=== PATIENT | male | born 1955 | race Caucasian/White ===

== ENCOUNTER 2019-11-14 07:13 | Inpatient (IN) ==
[2019-11-14] MEDS ORDERED: DEXTROSE 50% 25 GM/50 ML VIAL IV PRN (08:30)
[2019-11-14] MEDS ORDERED: DEXTROSE 10% 250 ML BAG IV PRN (08:30)
[2019-11-14] MEDS ORDERED: SODIUM CHLORIDE 0.9% 1,000 ML IV SCH (08:30)
[2019-11-14] MEDS ORDERED: GLUCAGON 1 MG VIAL IM PRN ×2 (08:30)
[2019-11-14] MEDS: amLODIPine 10 MG TABLET PO SCH (12:28)
[2019-11-14] MEDS: ATORVASTATIN 10 MG TABLET PO SCH (12:29)
[2019-11-14] MEDS: atenoloL 50 MG TABLET PO SCH ×2 (12:29→20:23)
[2019-11-14] MEDS: lisinopriL 20 MG TABLET PO SCH (12:29)
[2019-11-14] MEDS: hydroCHLOROthiazide 12.5 MG CAPSULE PO SCH (12:29)
[2019-11-14 12:57] LABS: Basophils % 0.4 % (0.0-0.8); Eosinophils # 0.2 10*3/uL (0.0-0.87); Eosinophils % 1.9 % (0.00-10.9); Hemoglobin 13.8 GM/DL (14.0-18.0); Immature Granulocytes % 0.3 %; Immature Granulocytes Absolute 0.03 #; Lymphocytes # 2.7 10*3/uL (1.4-4.0); Lymphocytes % 26.6 % (21.2-54.2); Mean Corpuscular HGB Conc 32.9 GM/DL (32-36); Mean Corpuscular Volume 90.3 FL (87-102); Mean Platelet Volume 10.2 FL (9.6-12.0); Monocytes % 8.3 % (1.7-12.7); Neutrophils % 62.5 % (38.7-73.9); Platelet Count 214 T/CUMM (130-400); Red Blood Count 4.65 MC/CUMM (3.8-5.5); Red Cell Distribution Width 13.2 % (9.3-17.3)
[2019-11-14 13:07] LABS: Alanine Aminotransferase 30 U/L (16-61); Albumin 3.2 G/DL (3.4-5.0); Alkaline Phosphatase 76 U/L (45-117); Aspartate Amino Transferase 30 U/L (0-37); Bilirubin,Total < 0.39 MG/DL (0.2-1.0); Blood Urea Nitrogen 18 MG/DL (7-18); Calcium 8.8 MG/DL (8.5-10.1); Estimated Glom Filtration Rate 70 ML/MIN; Glucose 125 MG/DL (74-106); Osmolality,Calculated 279.5 MOS/KG (273-304); Total Protein 6.5 G/DL (6.4-8.3)
[2019-11-14] MEDS: NITROGLYCERIN 0.4 MG/HR PATCH TRANSDERM SCH (13:43)
[2019-11-14 13:45] LABS: Allen Test Positive; Pt O2 Delivery Device Room Air
[2019-11-14 13:46] LABS: ABG HCO3 23.2 MMOL/L (20-26); ABG Oxygen Saturation 95.7 % (95-100); ABG PCO2 33.8 MM HG (35-48); ABG PH 7.455 (7.35-7.45); ABG PO2 75.9 MM HG (80-95); ABG TCO2 24.3 MMOL/L (23-27)
[2019-11-14] MEDS: CHLORHEXIDINE 4% SOLN 118 ML BOTTLE TOP SCH ×2 (14:39→23:37)
[2019-11-14] MEDS ORDERED: POTASSIUM CHLORIDE RIDER 100 ML IV ONE (18:06)
[2019-11-14] MEDS ORDERED: SODIUM BICARBONATE 50 MEQ/50 ML VIAL IV ONE (18:06)
[2019-11-14] MEDS ORDERED: NITROPRUSSIDE 50 MG/2 ML VIAL ONE (18:06)
[2019-11-14] MEDS ORDERED: CALCIUM CHLORIDE 1,000 MG/10 ML SYRINGE IV ONE (18:06)
[2019-11-14] MEDS ORDERED: PHENYLEPHRINE DRIP 40 MG/250 ML PREMIX IV ONE (18:06)
[2019-11-14] MEDS ORDERED: ALBUMIN 5% 12.5 GM/250 ML VIAL IV ONE (18:07)
[2019-11-14] MEDS: CHLORHEXIDINE 0.12% ORAL RINSE 60 ML BOTTLE SWISH/SPIT SCH (20:23)
[2019-11-15] MEDS ORDERED: VANCOMYCIN 1,000 MG VIAL ONE (04:45)
[2019-11-15] MEDS ORDERED: VANCOMYCIN 500 MG VIAL ONE (04:45)
[2019-11-15] MEDS ORDERED: PAPAVERINE 60 MG/2 ML VIAL ONE (04:45)
[2019-11-15] MEDS: CHLORHEXIDINE 4% SOLN 118 ML BOTTLE TOP SCH ×2 (04:45→08:00)
[2019-11-15] MEDS ORDERED: LIDOCAINE 2% 5 ML VIAL ONE ×2 (05:27→10:47)
[2019-11-15] MEDS ORDERED: CALCIUM CHLORIDE 1,000 MG/10 ML VIAL IV ONE (05:27)
[2019-11-15] MEDS ORDERED: HEPARIN/NACL 0.9% 2 UNITS/ML 500 ML IV ONE (05:28)
[2019-11-15] MEDS ORDERED: VECURONIUM 10 MG VIAL IV ONE (05:28)
[2019-11-15] MEDS ORDERED: SUFentanil 250 MCG/5 ML AMP ONE (05:28)
[2019-11-15] MEDS ORDERED: NITROGLYCERIN DRIP 50 MG/250 ML BOTTLE IV ONE (05:28)
[2019-11-15] MEDS ORDERED: MIDAZOLAM 10 MG/2 ML VIAL ONE (05:28)
[2019-11-15] MEDS ORDERED: ETOMIDATE 40 MG/20 ML VIAL IV ONE (05:28)
[2019-11-15] MEDS ORDERED: PHENYLEPHRINE DRIP 20 MG/250 ML PREMIX IV ONE (05:28)
[2019-11-15] MEDS ORDERED: SODIUM CHLORIDE 0.9% 1,000 ML IV ONE (05:29)
[2019-11-15] MEDS ORDERED: LACTATED RINGERS 1,000 ML IV ONE (05:29)
[2019-11-15] MEDS ORDERED: ePHEDrine 50 MG/ML AMP ONE (05:29)
[2019-11-15] MEDS ORDERED: SODIUM CHLORIDE 0.9% 250 ML IV ONE (05:29)
[2019-11-15] MEDS ORDERED: AMINOCAPROIC ACID 5,000 MG/20 ML VIAL ONE (05:29)
[2019-11-15] MEDS ORDERED: DIAZEPAM 5 MG TABLET PO ONE (06:00)
[2019-11-15] MEDS ORDERED: SODIUM CHLORIDE 0.9% 1,000 ML IV SCH (06:00)
[2019-11-15] MEDS ORDERED: diphenhydrAMINE CAP 25 MG CAPSULE PO ONE (06:00)
[2019-11-15] MEDS ORDERED: CEFUROXIME INJ 1,500 MG in SYRINGE 1 EACH IV ONE (06:00)
[2019-11-15 07:35] LABS: ABG Base Excess 0.6 MMOL/L (-2.5-2.5); ABG PCO2 38.4 MM HG (35-48); ABG PH 7.419 (7.35-7.45); ABG TCO2 21.5 MMOL/L (23-27); Glucose Heart Surgery 205 MG/DL (74-106); Hematocrit Heart Surgery 42.1 PERCENT (42-52); Hemoglobin Heart Surgery 13.7 G/DL (14.0-18.0); Ionized Calcium Arterial 1.18 MMOL/L (1.21-1.46); PCO2 Patient Temp Arterial 38.4 MMHG; PH Patient Temp Arterial 7.419; Patient Temperature 37 CELCIUS; Potassium Heart/CVR 3.8 MMOL/L (3.5-5.1); Sodium Heart/CVR 136 MMOL/L (135-145)
[2019-11-15] MEDS: ATORVASTATIN 10 MG TABLET PO SCH (08:00)
[2019-11-15] MEDS: NITROGLYCERIN 0.4 MG/HR PATCH TRANSDERM SCH (08:00)
[2019-11-15] MEDS: CHLORHEXIDINE 0.12% ORAL RINSE 60 ML BOTTLE SWISH/SPIT SCH ×2 (08:00→21:29)
[2019-11-15] MEDS: atenoloL 50 MG TABLET PO SCH ×3 (08:00→21:28)
[2019-11-15] MEDS: lisinopriL 20 MG TABLET PO SCH (08:00)
[2019-11-15] MEDS: amLODIPine 10 MG TABLET PO SCH (08:00)
[2019-11-15] MEDS: hydroCHLOROthiazide 12.5 MG CAPSULE PO SCH (08:00)
[2019-11-15 08:49] LABS: Apearance,Urine CLEAR (Clear); Bilirubin,Urine Negative (Negative); Blood, Urine Negative (Negative); Glucose,Urine (UA) >=500 mg/dL (Negative); Ketones,Urine Negative (Negative); Mucus,Urine Occasional /LPF (Occasional); Nitrite,Urine Negative (Negative); Protein,Urine Negative; RBC,Urine <1 /HPF (0-4); Urine Color Yellow (Yellow); Urine Specific Gravity 1.014 (1.001-1.035); Urine Urobilinogen < 2.0 EU/DL (0.2-1.0); WBC,Urine <1 /HPF (0-6)
[2019-11-15 08:58] LABS: Hematocrit Heart Surgery 29.8 PERCENT (42-52); Hemoglobin Heart Surgery 9.6 G/DL (14.0-18.0); PCO2 Patient Temp Venous 34.7 MM HG; PH Patient Temp Venous 7.46; PO2 Patient Temp Venous 38.6 MM HG; Potassium Heart/CVR 4.4 MMOL/L (3.5-5.1); VBG Base Excess 1.2 MEQ/L (0-4); VBG HCO3 25.2 MEQ/L (24-28); VBG Oxygen Saturation 81.9 %; VBG PCO2 38.2 MMHG (41-51); VBG PH 7.43; VBG PO2 44.3 MMHG (17-40)
[2019-11-15 09:35] LABS: Hemoglobin Heart Surgery 10.7 G/DL (14.0-18.0); PCO2 Patient Temp Venous 35.2 MM HG; PH Patient Temp Venous 7.453; PO2 Patient Temp Venous 40.8 MM HG; Potassium Heart/CVR 4.4 MMOL/L (3.5-5.1); VBG Base Excess 1.1 MEQ/L (0-4); VBG HCO3 25.1 MEQ/L (24-28); VBG Oxygen Saturation 85.9 %; VBG PCO2 40.7 MMHG (41-51); VBG PH 7.409; VBG PO2 50.1 MMHG (17-40)
[2019-11-15 10:00] LABS: Hematocrit Heart Surgery 34.4 PERCENT (42-52); Hemoglobin Heart Surgery 11.2 G/DL (14.0-18.0); PCO2 Patient Temp Venous 34.9 MM HG; PH Patient Temp Venous 7.442; PO2 Patient Temp Venous 40.7 MM HG; Potassium Heart/CVR 4.5 MMOL/L (3.5-5.1); VBG Base Excess 0.1 MEQ/L (0-4); VBG HCO3 24.3 MEQ/L (24-28); VBG Oxygen Saturation 85.8 %; VBG PCO2 40.4 MMHG (41-51); VBG PH 7.398; VBG PO2 50.1 MMHG (17-40)
[2019-11-15 10:37] LABS: Hemoglobin Heart Surgery 11.9 G/DL (14.0-18.0); PCO2 Patient Temp Venous 24.4 MM HG; PH Patient Temp Venous 7.569; PO2 Patient Temp Venous 21.8 MM HG; Potassium Heart/CVR 4.8 MMOL/L (3.5-5.1); VBG Base Excess -0.2 MEQ/L (0-4); VBG Oxygen Saturation 80.1 %; VBG PCO2 37.8 MMHG (41-51); VBG PH 7.421; VBG PO2 44.2 MMHG (17-40)
[2019-11-15] MEDS ORDERED: DEXTROSE 5% KCL 20 MEQ 20 MEQ/1,000 ML BAG IV ONE (10:47)
[2019-11-15] MEDS ORDERED: MANNITOL 100 GM/500 ML BAG IV ONE (10:47)
[2019-11-15] MEDS ORDERED: SODIUM BICARBONATE 50 MEQ/50 ML VIAL IV ONE (10:47)
[2019-11-15] MEDS ORDERED: ALBUMIN 25% 25 GM/100 ML VIAL IV ONE (10:47)
[2019-11-15] MEDS ORDERED: MAGNESIUM SULFATE 5 GM/10 ML VIAL IV ONE (10:48)
[2019-11-15] MEDS ORDERED: methylPREDNISolone SOD SUC 1,000 MG/8 ML VIAL ONE (10:48)
[2019-11-15] MEDS ORDERED: PROTAMINE SULFATE 250 MG/25 ML VIAL IV ONE (10:48)
[2019-11-15] MEDS ORDERED: HEPARIN 10,000 UNIT/10 ML VIAL ONE (10:48)
[2019-11-15] MEDS ORDERED: FUROSEMIDE 20 MG/2 ML VIAL ONE (10:48)
[2019-11-15 11:05] LABS: ABG Base Excess -1.2 MMOL/L (-2.5-2.5); ABG HCO3 23.5 MMOL/L (20-26); ABG PCO2 34.8 MM HG (35-48); ABG PH 7.423 (7.35-7.45); ABG TCO2 20.2 MMOL/L (23-27); Glucose Heart Surgery 319 MG/DL (74-106); Hematocrit Heart Surgery 35.6 PERCENT (42-52); Hemoglobin Heart Surgery 11.5 G/DL (14.0-18.0); Ionized Calcium Arterial 1.19 MMOL/L (1.21-1.46); PCO2 Patient Temp Arterial 34.8 MMHG; PH Patient Temp Arterial 7.423; Patient Temperature 37 CELCIUS; Potassium Heart/CVR 4.1 MMOL/L (3.5-5.1); Sodium Heart/CVR 129 MMOL/L (135-145)
[2019-11-15] MEDS ORDERED: SODIUM CHLORIDE 0.9% 500 ML IV ONE (11:43)
[2019-11-15] MEDS ORDERED: SEVOFLURANE 1 UNIT/15 MINUTE INH ONE (11:50)
[2019-11-15] MEDS ORDERED: ONDANSETRON 4 MG/2 ML VIAL IV PRN (12:04)
[2019-11-15] MEDS ORDERED: PHENYLEPHRINE DRIP 40 MG/250 ML PREMIX IV PRN (12:04)
[2019-11-15] MEDS ORDERED: MAGNESIUM SULF RIDER 2 GM in PREMIX 1 EACH IV PRN (12:04)
[2019-11-15] MEDS ORDERED: CHLORHEXIDINE 4% SOLN 118 ML BOTTLE TOP PRN (12:04)
[2019-11-15] MEDS ORDERED: NITROPRUSSIDE 100 MG in DEXTROSE 5% 250 ML IV PRN (12:04)
[2019-11-15] MEDS ORDERED: ACETAMINOPHEN 650 MG SUPP RECTAL PRN (12:04)
[2019-11-15] MEDS ORDERED: LACTATED RINGERS 250 ML IV PRN (12:04)
[2019-11-15] MEDS ORDERED: INSULIN REGULAR DRIP 100 ML IV SCH (12:04)
[2019-11-15] MEDS ORDERED: MIDAZOLAM 2 MG/2 ML VIAL IV PRN (12:04)
[2019-11-15] MEDS ORDERED: INSULIN REGULAR 100 UNIT/ML IV ONE (12:04)
[2019-11-15] MEDS ORDERED: VECURONIUM 10 MG VIAL IV PRN ×2 (12:04)
[2019-11-15] MEDS ORDERED: INSULIN REGULAR 100 UNIT/ML IV PRN (12:04)
[2019-11-15] MEDS ORDERED: MIDAZOLAM 10 MG/2 ML VIAL IV PRN (12:04)
[2019-11-15] MEDS ORDERED: MAGNESIUM SULF RIDER 4 GM in PREMIX 1 EACH IV PRN (12:04)
[2019-11-15] MEDS ORDERED: MORPHINE 10 MG/1 ML VIAL IV PRN (12:04)
[2019-11-15] MEDS ORDERED: SODIUM CHLORIDE 0.45% 1,000 ML IV SCH ×2 (12:04)
[2019-11-15] MEDS ORDERED: DEXTROSE 10% 250 ML BAG IV PRN ×2 (12:04)
[2019-11-15] MEDS ORDERED: CALCIUM CHLORIDE 1,000 MG/10 ML SYRINGE IV PRN (12:04)
[2019-11-15 12:25] LABS: ABG Base Excess -1.3 MMOL/L (-2.5-2.5); ABG HCO3 23.6 MMOL/L (20-26); ABG Oxygen Saturation 98.7 % (95-100); ABG PCO2 40.2 MM HG (35-48); ABG PH 7.386 (7.35-7.45); ABG PO2 144.7 MM HG (80-95); ABG TCO2 24.8 MMOL/L (23-27); Glucose Heart Surgery 315 MG/DL (74-106); Hemoglobin Heart Surgery 13.5 G/DL (14.0-18.0); Potassium Heart/CVR 3.5 MMOL/L (3.5-5.1)
[2019-11-15] MEDS: POTASSIUM CHLORIDE RIDER 20 MEQ in PREMIX 1 EACH IV PRN ×4 (12:26→17:05)
[2019-11-15 12:29] LABS: Basophils # 0.1 10*3/uL (0.0-0.2); Basophils % 0.3 % (0.0-0.8); Eosinophils # 0.1 10*3/uL (0.0-0.87); Eosinophils % 0.5 % (0.00-10.9); Hemoglobin 12.9 GM/DL (14.0-18.0); Immature Granulocytes Absolute 0.18 #; Lymphocytes # 1.9 10*3/uL (1.4-4.0); Lymphocytes % 10.1 % (21.2-54.2); Mean Corpuscular HGB Conc 33.1 GM/DL (32-36); Mean Corpuscular Volume 89.9 FL (87-102); Mean Platelet Volume 10.5 FL (9.6-12.0); Monocytes % 4.6 % (1.7-12.7); Neutrophils % 83.5 % (38.7-73.9); Platelet Count 201 T/CUMM (130-400); Red Blood Count 4.34 MC/CUMM (3.8-5.5); Red Cell Distribution Width 13.1 % (9.3-17.3); White Blood Count 18.6 T/CUMM (4-12)
[2019-11-15 12:43] LABS: PT Patient Result 10.7 SECS (9.6-12.2); Partial Thromboplastin Time 26.6 SECS (20.8-36.0)
[2019-11-15 12:57] LABS: Albumin 3.3 G/DL (3.4-5.0); Bilirubin,Total 1.3 MG/DL (0.2-1.0); Calcium 8.1 MG/DL (8.5-10.1); Total Protein 6.2 G/DL (6.4-8.3)
[2019-11-15 12:59] LABS: CKMB % 6.3 %
[2019-11-15 13:02] LABS: Troponin I 4.47 NG/ML (0.00-0.045)
[2019-11-15] MEDS: ALBUMIN 5% 12.5 GM in PREMIX 1 EACH IV PRN ×2 (13:05→17:20)
[2019-11-15] MEDS: POTASSIUM CHLORIDE RIDER 10 MEQ in PREMIX 1 EACH IV PRN ×2 (13:32→17:52)
[2019-11-15 14:37] LABS: ABG Base Excess -1.7 MMOL/L (-2.5-2.5); ABG Oxygen Saturation 98.4 % (95-100); ABG PCO2 43.1 MM HG (35-48); ABG PH 7.353 (7.35-7.45); ABG TCO2 21.1 MMOL/L (23-27); Glucose Heart Surgery 263 MG/DL (74-106); Hematocrit Heart Surgery 39.5 PERCENT (42-52); Hemoglobin Heart Surgery 12.8 G/DL (14.0-18.0); Potassium Heart/CVR 3.3 MMOL/L (3.5-5.1)
[2019-11-15] MEDS: LACTATED RINGERS 1,000 ML IV PRN ×2 (15:03→22:29)
[2019-11-15 16:20] LABS: Hematocrit Heart Surgery 37.9 PERCENT (42-52); Hemoglobin Heart Surgery 12.3 G/DL (14.0-18.0); PH Patient Temp Venous 7.339; Potassium Heart/CVR 3.8 MMOL/L (3.5-5.1); VBG Base Excess -0.9 MEQ/L (0-4); VBG HCO3 23.1 MEQ/L (24-28); VBG Oxygen Saturation 71.2 %; VBG PH 7.339
[2019-11-15 17:01] LABS: ABG Base Excess -1.3 MMOL/L (-2.5-2.5); ABG HCO3 23.4 MMOL/L (20-26); ABG Oxygen Saturation 99.2 % (95-100); ABG PCO2 39.7 MM HG (35-48); ABG PH 7.382 (7.35-7.45); ABG TCO2 20.9 MMOL/L (23-27); Glucose Heart Surgery 169 MG/DL (74-106); Hematocrit Heart Surgery 37.4 PERCENT (42-52); Hemoglobin Heart Surgery 12.2 G/DL (14.0-18.0); Potassium Heart/CVR 3.8 MMOL/L (3.5-5.1)
[2019-11-15] MEDS: CEFUROXIME INJ 1,500 MG in SYRINGE 1 EACH IV SCH (18:31)
[2019-11-15 21:43] LABS: ABG Base Excess -0.4 MMOL/L (-2.5-2.5); ABG HCO3 24.1 MMOL/L (20-26); ABG PCO2 35.6 MM HG (35-48); ABG PH 7.428 (7.35-7.45); ABG TCO2 20.8 MMOL/L (23-27); Glucose Heart Surgery 170 MG/DL (74-106); Potassium Heart/CVR 4.1 MMOL/L (3.5-5.1)
[2019-11-15 22:11] LABS: CKMB % 5.2 %
[2019-11-15 22:14] LABS: Troponin I 18.7 NG/ML (0.00-0.045)
[2019-11-15 23:08] LABS: ABG Base Excess -1.1 MMOL/L (-2.5-2.5); ABG HCO3 23.5 MMOL/L (20-26); ABG Oxygen Saturation 99.1 % (95-100); ABG PCO2 36.2 MM HG (35-48); ABG PH 7.412 (7.35-7.45); ABG TCO2 20.7 MMOL/L (23-27); Glucose Heart Surgery 131 MG/DL (74-106); Hematocrit Heart Surgery 33.4 PERCENT (42-52); Hemoglobin Heart Surgery 10.8 G/DL (14.0-18.0); Potassium Heart/CVR 3.9 MMOL/L (3.5-5.1)
[2019-11-16] MEDS ORDERED: FUROSEMIDE 40 MG/4 ML VIAL IV ONE (00:02)
[2019-11-16 01:08] LABS: ABG Base Excess 0.7 MMOL/L (-2.5-2.5); ABG HCO3 25.1 MMOL/L (20-26); ABG Oxygen Saturation 97.6 % (95-100); ABG PH 7.441 (7.35-7.45); ABG PO2 88.5 MM HG (80-95); ABG TCO2 21.9 MMOL/L (23-27); Glucose Heart Surgery 113 MG/DL (74-106); Hematocrit Heart Surgery 34.5 PERCENT (42-52); Hemoglobin Heart Surgery 11.2 G/DL (14.0-18.0); Potassium Heart/CVR 3.8 MMOL/L (3.5-5.1)
[2019-11-16] MEDS: POTASSIUM CHLORIDE RIDER 20 MEQ in PREMIX 1 EACH IV PRN ×2 (01:22→05:53)
[2019-11-16 01:55] LABS: ABG Base Excess 1.5 MMOL/L (-2.5-2.5); ABG HCO3 25.8 MMOL/L (20-26); ABG Oxygen Saturation 98.8 % (95-100); ABG PCO2 34.1 MM HG (35-48); ABG PH 7.468 (7.35-7.45); ABG TCO2 21.8 MMOL/L (23-27); Glucose Heart Surgery 115 MG/DL (74-106); Hematocrit Heart Surgery 37.3 PERCENT (42-52); Hemoglobin Heart Surgery 12.1 G/DL (14.0-18.0); Potassium Heart/CVR 4.5 MMOL/L (3.5-5.1)
[2019-11-16] MEDS: POTASSIUM CHLORIDE RIDER 10 MEQ in PREMIX 1 EACH IV PRN (01:57)
[2019-11-16] MEDS: MORPHINE 4 MG/1 ML VIAL IV PRN ×2 (03:38→08:27)
[2019-11-16 03:57] LABS: ABG Base Excess 1.1 MMOL/L (-2.5-2.5); ABG HCO3 25.4 MMOL/L (20-26); ABG Oxygen Saturation 96.7 % (95-100); ABG PCO2 36.3 MM HG (35-48); ABG PH 7.444 (7.35-7.45); ABG PO2 81.2 MM HG (80-95); ABG TCO2 21.9 MMOL/L (23-27); Glucose Heart Surgery 110 MG/DL (74-106); Hematocrit Heart Surgery 37.3 PERCENT (42-52); Hemoglobin Heart Surgery 12.1 G/DL (14.0-18.0); Potassium Heart/CVR 3.9 MMOL/L (3.5-5.1)
[2019-11-16 04:07] LABS: Basophils % 0.1 % (0.0-0.8); Hematocrit 35.5 VOL% (42.0-52.0); Hemoglobin 11.6 GM/DL (14.0-18.0); Immature Granulocytes % 0.7 %; Immature Granulocytes Absolute 0.16 #; Lymphocytes # 1.4 10*3/uL (1.4-4.0); Lymphocytes % 6.1 % (21.2-54.2); Mean Corpuscular HGB Conc 32.7 GM/DL (32-36); Mean Platelet Volume 11.1 FL (9.6-12.0); Monocytes % 5.5 % (1.7-12.7); Neutrophils % 87.6 % (38.7-73.9); Platelet Count 222 T/CUMM (130-400); Red Cell Distribution Width 13.6 % (9.3-17.3); White Blood Count 23.5 T/CUMM (4-12)
[2019-11-16 04:23] LABS: Albumin 3.7 G/DL (3.4-5.0); Bilirubin,Direct 0.14 MG/DL (0.0-0.20); Bilirubin,Total 0.5 MG/DL (0.2-1.0); Calcium 8.7 MG/DL (8.5-10.1); Osmolality,Calculated 281.4 MOS/KG (273-304); Total Protein 6.8 G/DL (6.4-8.3)
[2019-11-16 04:49] LABS: Band Neutrophils 1 % (0-10); Hypochromasia 1+; Lymphocytes 8 % (20-55); Platelet Estimate Adequate; Segmented Neutrophils 86 % (50-85); Total Cells Counted 100
[2019-11-16 05:59] LABS: CKMB % 5.9 %
[2019-11-16 06:07] LABS: Troponin I 69.5 NG/ML (0.00-0.045)
[2019-11-16] MEDS: CEFUROXIME INJ 1,500 MG in SYRINGE 1 EACH IV SCH ×2 (07:30→20:43)
[2019-11-16] MEDS ORDERED: oxyCODONE/ACETAMINOPHEN 5-325 MG TABLET PO PRN (08:40)
[2019-11-16] MEDS ORDERED: DEXTROSE 50% 25 GM/50 ML VIAL IV PRN (09:10)
[2019-11-16] MEDS ORDERED: GLUCAGON 1 MG VIAL IM PRN (09:10)
[2019-11-16] MEDS: ASPIRIN EC 81 MG TABLET PO SCH (09:20)
[2019-11-16] MEDS: atenoloL 50 MG TABLET PO SCH ×2 (09:20→20:45)
[2019-11-16] MEDS: CHLORHEXIDINE 0.12% ORAL RINSE 60 ML BOTTLE SWISH/SPIT SCH ×2 (09:20→20:52)
[2019-11-16] MEDS: KETOROLAC 30 MG/1 ML VIAL IV SCH ×3 (09:20→20:46)
[2019-11-16] MEDS: FUROSEMIDE 40 MG/4 ML VIAL IV SCH ×2 (10:30→16:25)
[2019-11-16] MEDS ORDERED: SODIUM CHLOR 0.45% KCL 20 MEQ 20 MEQ/1,000 ML BAG IV SCH (11:30)
[2019-11-16] MEDS: INSULIN REGULAR 100 UNIT/ML SUBCUT SCH ×4 (12:05→23:32)
[2019-11-16 12:44] LABS: CKMB % 5.8 %
[2019-11-16 12:47] LABS: Troponin I 78.4 NG/ML (0.00-0.045)
[2019-11-16] MEDS ORDERED: SODIUM CHLORIDE 0.45% 1,000 ML IV SCH (15:30)
[2019-11-16] MEDS: sitaGLIPtin 25 MG TABLET PO SCH (16:25)
[2019-11-16] MEDS: metFORMIN 500 MG TABLET PO SCH (16:25)
[2019-11-16] MEDS: SIMVASTATIN 10 MG TABLET PO SCH (20:45)
[2019-11-17 04:39] LABS: Alanine Aminotransferase 65 U/L (16-61); Albumin 2.9 G/DL (3.4-5.0); Alkaline Phosphatase 64 U/L (45-117); Aspartate Amino Transferase 184 U/L (0-37); Bilirubin,Total < 0.39 MG/DL (0.2-1.0); Blood Urea Nitrogen 42 MG/DL (7-18); Calcium 8.7 MG/DL (8.5-10.1); Estimated Glom Filtration Rate 65 ML/MIN; Glucose 85 MG/DL (74-106); Osmolality,Calculated 284.7 MOS/KG (273-304); Total Protein 6.2 G/DL (6.4-8.3)
[2019-11-17] MEDS: KETOROLAC 30 MG/1 ML VIAL IV SCH (04:40)
[2019-11-17 04:42] LABS: Basophils % 0.1 % (0.0-0.8); Hematocrit 34.6 VOL% (42.0-52.0); Hemoglobin 11.5 GM/DL (14.0-18.0); Immature Granulocytes % 1.9 %; Immature Granulocytes Absolute 0.51 #; Lymphocytes # 1.7 10*3/uL (1.4-4.0); Lymphocytes % 6.3 % (21.2-54.2); Mean Corpuscular HGB Conc 33.2 GM/DL (32-36); Mean Corpuscular Volume 90.6 FL (87-102); Mean Platelet Volume 11.7 FL (9.6-12.0); Monocytes % 7.4 % (1.7-12.7); Neutrophils % 84.3 % (38.7-73.9); Platelet Count 207 T/CUMM (130-400); Red Blood Count 3.82 MC/CUMM (3.8-5.5); Red Cell Distribution Width 13.8 % (9.3-17.3); White Blood Count 27.6 T/CUMM (4-12)
[2019-11-17 04:52] LABS: CKMB % 4.9 %
[2019-11-17 04:53] LABS: Troponin I 44.6 NG/ML (0.00-0.045)
[2019-11-17] MEDS: INSULIN REGULAR 100 UNIT/ML SUBCUT SCH ×2 (04:57→07:58)
[2019-11-17 05:16] LABS: Band Neutrophils 2 % (0-10); Lymphocytes 9 % (20-55); Segmented Neutrophils 82 % (50-85); Total Cells Counted 100
[2019-11-17 05:17] LABS: Hypochromasia 1+; Platelet Estimate Adequate
[2019-11-17] MEDS: FUROSEMIDE 40 MG/4 ML VIAL IV SCH (07:59)
[2019-11-17] MEDS: metFORMIN 500 MG TABLET PO SCH (07:59)
[2019-11-17] MEDS: sitaGLIPtin 25 MG TABLET PO SCH (07:59)
[2019-11-17] MEDS: CHLORHEXIDINE 0.12% ORAL RINSE 60 ML BOTTLE SWISH/SPIT SCH ×2 (07:59→20:51)
[2019-11-17] MEDS: ASPIRIN EC 81 MG TABLET PO SCH (07:59)
[2019-11-17] MEDS: atenoloL 50 MG TABLET PO SCH ×2 (08:02→20:50)
[2019-11-17] MEDS ORDERED: MAGNESIUM HYDROXIDE SUSP 30 ML UDCUP PO PRN (11:05)
[2019-11-17] MEDS ORDERED: DEXTROSE 50% 25 GM/50 ML VIAL IV PRN (11:05)
[2019-11-17] MEDS ORDERED: SODIUM CHLOR 0.45% KCL 20 MEQ 20 MEQ/1,000 ML BAG IV SCH (11:05)
[2019-11-17] MEDS ORDERED: ONDANSETRON 4 MG/2 ML VIAL IV PRN (11:05)
[2019-11-17] MEDS ORDERED: MAGNESIUM SULF RIDER 4 GM in PREMIX 1 EACH IV PRN (11:05)
[2019-11-17] MEDS ORDERED: MAGNESIUM SULF RIDER 2 GM in PREMIX 1 EACH IV PRN (11:05)
[2019-11-17] MEDS ORDERED: ACETAMINOPHEN 325 MG TABLET PO PRN (11:05)
[2019-11-17] MEDS ORDERED: ZALEPLON 5 MG CAPSULE PO PRN (11:05)
[2019-11-17] MEDS ORDERED: GLUCAGON 1 MG VIAL IM PRN (11:05)
[2019-11-17] MEDS ORDERED: POTASSIUM CHLORIDE 20 MEQ TABLET PO PRN (11:05)
[2019-11-17] MEDS ORDERED: ALUMINUM/MAGNES/SIMETH MAX STR 30 ML UDCUP PO PRN (11:05)
[2019-11-17] MEDS: INSULIN LISPRO 100 UNIT/ML SUBCUT SCH ×3 (13:27→21:00)
[2019-11-17] MEDS: SIMVASTATIN 10 MG TABLET PO SCH (20:50)
[2019-11-17] MEDS: AMIODARONE 200 MG TABLET PO SCH (20:50)
[2019-11-18] MEDS: INSULIN LISPRO 100 UNIT/ML SUBCUT SCH ×7 (00:12→21:11)
[2019-11-18 06:38] LABS: Basophils % 0.1 % (0.0-0.8); Eosinophils % 0.1 % (0.00-10.9); Hematocrit 34.8 VOL% (42.0-52.0); Hemoglobin 11.6 GM/DL (14.0-18.0); Immature Granulocytes % 1.4 %; Immature Granulocytes Absolute 0.28 #; Lymphocytes # 2.7 10*3/uL (1.4-4.0); Lymphocytes % 13.7 % (21.2-54.2); Mean Corpuscular HGB Conc 33.3 GM/DL (32-36); Mean Corpuscular Volume 91.1 FL (87-102); Mean Platelet Volume 11.5 FL (9.6-12.0); Monocytes % 8.3 % (1.7-12.7); Neutrophils % 76.4 % (38.7-73.9); Platelet Count 218 T/CUMM (130-400); Red Blood Count 3.82 MC/CUMM (3.8-5.5); Red Cell Distribution Width 13.7 % (9.3-17.3); White Blood Count 19.7 T/CUMM (4-12)
[2019-11-18 07:00] LABS: Albumin 2.8 G/DL (3.4-5.0); Bilirubin,Direct 0.1 MG/DL (0.0-0.20); Bilirubin,Total 0.4 MG/DL (0.2-1.0); Calcium 8.8 MG/DL (8.5-10.1); Osmolality,Calculated 290.7 MOS/KG (273-304); Total Protein 6.2 G/DL (6.4-8.3)
[2019-11-18 07:01] LABS: Troponin I 21.8 NG/ML (0.00-0.045)
[2019-11-18] MEDS: PANTOPRAZOLE 40 MG TABLET PO SCH (08:22)
[2019-11-18] MEDS: sitaGLIPtin 25 MG TABLET PO SCH (08:22)
[2019-11-18] MEDS: atenoloL 50 MG TABLET PO SCH ×2 (08:22→21:12)
[2019-11-18] MEDS: hydroCHLOROthiazide 12.5 MG CAPSULE PO SCH (08:22)
[2019-11-18] MEDS: DOCUSATE SODIUM 100 MG CAPSULE PO SCH (08:23)
[2019-11-18] MEDS: FERROUS SULFATE 325 MG TABLET PO SCH (08:23)
[2019-11-18] MEDS: ASPIRIN EC 81 MG TABLET PO SCH (08:23)
[2019-11-18] MEDS: AMIODARONE 200 MG TABLET PO SCH ×2 (08:23→21:12)
[2019-11-18] MEDS: metFORMIN 500 MG TABLET PO SCH (08:23)
[2019-11-18] MEDS: CHLORHEXIDINE 0.12% ORAL RINSE 60 ML BOTTLE SWISH/SPIT SCH ×2 (08:25→21:12)
[2019-11-18] MEDS: SIMVASTATIN 10 MG TABLET PO SCH (21:12)
[2019-11-19] MEDS: INSULIN LISPRO 100 UNIT/ML SUBCUT SCH ×3 (00:49→09:06)
[2019-11-19 06:37] LABS: Basophils % 0.1 % (0.0-0.8); Eosinophils # 0.1 10*3/uL (0.0-0.87); Eosinophils % 0.5 % (0.00-10.9); Hemoglobin 11.9 GM/DL (14.0-18.0); Immature Granulocytes % 1.1 %; Immature Granulocytes Absolute 0.18 #; Lymphocytes # 3.1 10*3/uL (1.4-4.0); Mean Corpuscular HGB Conc 32.2 GM/DL (32-36); Mean Corpuscular Volume 91.1 FL (87-102); Monocytes % 8.6 % (1.7-12.7); Neutrophils % 70.7 % (38.7-73.9); Platelet Count 262 T/CUMM (130-400); Red Blood Count 4.06 MC/CUMM (3.8-5.5); Red Cell Distribution Width 13.6 % (9.3-17.3); White Blood Count 16.4 T/CUMM (4-12)
[2019-11-19 06:56] LABS: Albumin 2.7 G/DL (3.4-5.0); Bilirubin,Direct 0.11 MG/DL (0.0-0.20); Bilirubin,Indirect 0.5 MG/DL (0.0-1.0); Bilirubin,Total 0.6 MG/DL (0.2-1.0); CKMB % 2.5 %; Calcium 8.9 MG/DL (8.5-10.1); Total Protein 6.4 G/DL (6.4-8.3)
[2019-11-19 08:03] VITALS: BP 124/78
[2019-11-19] MEDS: sitaGLIPtin 25 MG TABLET PO SCH (09:04)
[2019-11-19] MEDS: hydroCHLOROthiazide 12.5 MG CAPSULE PO SCH (09:04)
[2019-11-19] MEDS: DOCUSATE SODIUM 100 MG CAPSULE PO SCH (09:04)
[2019-11-19] MEDS: ASPIRIN EC 81 MG TABLET PO SCH (09:05)
[2019-11-19] MEDS: FERROUS SULFATE 325 MG TABLET PO SCH (09:05)
[2019-11-19] MEDS: atenoloL 50 MG TABLET PO SCH (09:05)
[2019-11-19] MEDS: metFORMIN 500 MG TABLET PO SCH (09:05)
[2019-11-19] MEDS: AMIODARONE 200 MG TABLET PO SCH (09:05)
[2019-11-19] MEDS: PANTOPRAZOLE 40 MG TABLET PO SCH (09:05)
[2019-11-19] MEDS: CHLORHEXIDINE 0.12% ORAL RINSE 60 ML BOTTLE SWISH/SPIT SCH (09:06)
== END 2019-11-19 11:18 | disposition home health service (06) | DRG 236 ==
LOC: N.ICU 12:01 → N.CVR 11-15 09:55 → N.ICU 11-16 10:13 → N.TELES 11-17 10:37